=== PATIENT | female | born 1945 ===

== ENCOUNTER 2018-07-01 11:46 | Outpatient (CLI) | payer OTHER | END 2018-07-01 11:57 | disposition home or self-care (01) | LOC: RAD 501 11:46 | DX: G62.89 Other specified polyneuropathies (principal); E11.9 Type 2 diabetes mellitus without complications; I11.9 Hypertensive heart disease without heart failure; M54.14 Radiculopathy, thoracic region; M54.5 Low back pain; E03.8 Other specified hypothyroidism; E11.51 Type 2 diabetes mellitus with diabetic peripheral angiopathy without gangrene; E66.8 Other obesity; E78.89 Other lipoprotein metabolism disorders; E66.3 Overweight; E11.319 Type 2 diabetes mellitus with unspecified diabetic retinopathy without macular edema; E11.42 Type 2 diabetes mellitus with diabetic polyneuropathy ==

== ENCOUNTER 2020-07-20 13:21 | Outpatient (CLI) | payer OTHER | END 2020-07-20 13:27 | disposition home or self-care (01) | LOC: RAD 13:21 | PROVIDERS: ATTEND Internal Medicine | DX: M77.31 Calcaneal spur, right foot (principal); E11.319 Type 2 diabetes mellitus with unspecified diabetic retinopathy without macular edema; Z79.84 Long term (current) use of oral hypoglycemic drugs; I11.9 Hypertensive heart disease without heart failure; M54.14 Radiculopathy, thoracic region; M54.5 Low back pain; Z01.810 Encounter for preprocedural cardiovascular examination; E03.8 Other specified hypothyroidism; E66.8 Other obesity; E78.89 Other lipoprotein metabolism disorders; G62.89 Other specified polyneuropathies; I10 Essential (primary) hypertension; E11.42 Type 2 diabetes mellitus with diabetic polyneuropathy ==